=== PATIENT | female | born 1980 | race Caucasian/White ===

== ENCOUNTER 2017-05-22 08:46 | Emergency (ER) | payer OTHER ==
[~2017-05-22] VITALS: Ht 175.3 cm; Wt 138.0 kg
[~2017-05-22 08:46] MED LIST: ATOR10TA15 PO; EXENINJ SQ; LEXA20TA PO; LISI-519 PO; METF1000 PO; VITA1000 PO; ZITHTAB PO
[2017-05-22 08:57] VITALS: BP 135/72; PULSE 85; RESP 19; TEMP 98.3; O2SAT 97
--- NOTE | 2017-05-22 10:43 | PD ---
HPI Chief Complaint: Cold / Flu Symptoms Time Seen by Provider: 10:42 Travel History International Travel<30 days: No Contact w/Intl Traveler<30days: No Traveled to known affect area: No History of Present Illness HPI 36-year-old female presents emergency department with worsening upper respiratory symptoms including severe right ear pain, congestion, postnasal drip , sinus pressure, sore throat, cough, and wheezing. Patient was seen on the , and given azithromycin for diagnosis of bronchitis. X-ray at that time showed no pneumonia but platelike atelectasis on the left lower lung field. Patient denies significant fever, nausea, vomiting, or other symptoms. Patient has needed an inhaler in the past but normally does not have asthma. Right ear pain is 10 out of 10. She is allergic to penicillin. PFSH Past Medical History Cardiovascular Problems: Yes (HTN) High Cholesterol: Yes Diabetes: Yes Hypertension: Yes ?: Not LMP: 12/2016 Social History Alcohol Use: No Tobacco Use: No Substance Use: No Allergies-Medications (Allergen,Severity, Reaction): Coded Allergies: Penicillins (Verified Allergy, Severe, Anaphylaxis, 05/22/17) Reported Meds & Prescriptions Reported Meds & Active Scripts Active Zithromax Z-Cristiano (Azithromycin) 250 Mg Dspk 250 Mg PO DIRECTED 500 MG (2 tabs) day 1, then 1 tab days 2-5. Reported Lexapro (Escitalopram Oxalate) 20 Mg Tab 20 Mg PO HS Bydureon Inj (Exenatide) 2 Mg Vial 2 Mg SQ Q7D Vitamin D-1000 (Cholecalciferol) 1,000 Unit Tab 5,000 Units PO DAILY Metformin (Metformin HCl) 1,000 Mg Tab 1,000 Mg PO BIDPC Lisinopril 5 Mg Tab 5 Mg PO HS Atorvastatin (Atorvastatin Calcium) 10 Mg Tab 20 Mg PO HS Review of Systems Except as stated in HPI: all other systems reviewed are Neg General / Constitutional: No: Fever, Chills Eyes: No: Visual changes HENT: Positive: Headaches, Sore Throat, Rhinitis, Rhinorrhea, Congestion, Earache, No: Vertigo, Lightheadedness, Nosebleed, Neck Stiffness, Neck Pain, Masses, Gingival Bleeding, Dental Difficulties, Ear Discharge Cardiovascular: No: Chest Pain or Discomfort Respiratory: Positive: Cough, Shortness of Breath, Wheezing, No: Sneezing Gastrointestinal: No: Nausea, Vomiting, Diarrhea, Abdominal Pain Genitourinary: No: Dysuria Musculoskeletal: No: Pain Skin: No Rash Neurologic: No: Weakness Psychiatric: No: Depression Endocrine: No: Polydipsia Hematologic/Lymphatic: No: Easy Bruising Physical Exam Narrative GENERAL: Patient appears in moderate distress. SKIN: Warm and dry. Normal color. Normal turgor. HEAD: Atraumatic. Normocephalic. EYES: Pupils equal and round. No scleral icterus. No injection or drainage. ENT: No nasal bleeding or discharge. Mucous membranes pink and moist. Right TM shows the TM to be dull red and bulging. Left TM is unremarkable. Patient has mild to moderate sinus tenderness with palpation to both frontal and maxillary sinuses more on the right than the left. Posterior pharynx has cobblestoning and erythema without significant tonsillar swelling or exudate. Uvula is midline. Airways patent. NECK: Trachea midline. Supple and nontender CARDIOVASCULAR: Regular rate and rhythm. RESPIRATORY: No accessory muscle use. Mild diffuse wheezes throughout to auscultation. Breath sounds equal bilaterally. GASTROINTESTINAL: Abdomen soft, non-tender, nondistended. Hepatic and splenic margins not palpable. MUSCULOSKELETAL: Extremities without clubbing, cyanosis, or edema. No obvious deformities. NEUROLOGICAL: Awake and alert. No obvious cranial nerve deficits. Motor grossly within normal limits. Five out of 5 muscle strength in the arms and legs. Normal speech. PSYCHIATRIC: Appropriate mood and affect; insight and judgment normal. Data Data Last Documented VS Vital Signs Date Time Temp Pulse Resp B/P (MAP) Pulse Ox O2 Delivery O2 Flow Rate FiO2 05/22/17 08:57 98.3 85 19 135/72 (93) 97 Orders Orders Ketorolac Inj (Toradol Inj) (05/22/17 11:00) Prednisone (Deltasone) (05/22/17 11:00) Levofloxacin (Levaquin) (05/22/17 11:00) [facility] Medical Decision Making Medical Screen Exam Complete: Yes Emergency Medical Condition: Yes Medical Record Reviewed: Yes Differential Diagnosis Ongoing bronchitis. Wheezing. Right otitis media. Sinusitis. Postnasal drip Narrative Course Patient is given Toradol 60 mg IM, as well as 20 mg prednisone p.o. now. Patient is given a dose of Levaquin 750 mg p.o. now. Patient will be continued on Levaquin 500 mg daily for 10 days. Patient also given prednisone 20 mg daily for 5 days. Patient started on Flonase nasal spray 2 sprays each nostril daily. Patient is given is albuterol metered-dose inhaler 2 puffs every 4-6 hours as needed wheezing. Patient is given a work note for the next 2 days. Patient should follow-up if symptoms do not continue to improve with the above treatment. Diagnosis Primary Impression: Otitis media Qualified Codes: H66.001 - Acute suppurative otitis media without spontaneous rupture of ear drum, right ear Additional Impressions: Sinusitis Qualified Codes: J32.4 - Chronic pansinusitis Acute wheezy bronchitis Patient Instructions: General Instructions Additional Instructions: Patient will be continued on Levaquin 500 mg daily for 10 days. Patient also given prednisone 20 mg daily for 5 days. Patient started on Flonase nasal spray 2 sprays each nostril daily. Patient is given is albuterol metered-dose inhaler 2 puffs every 4-6 hours as needed wheezing. Patient is given a work note for the next 2 days. Patient should follow-up if symptoms do not continue to improve with the above treatment. Med/Other Pt SpecificInfo: Prescription(s) given Scripts Albuterol 18 GM Inh (Ventolin Hfa 18 GM Inh) 90 Mcg/Act Aer 2 PUFF INH Q4-6H Y for SHORTNESS OF BREATH, #1 INHALER 0 Refills Prov: Rodrick Cardona MD 05/22/17 Prednisone (Prednisone) 20 Mg Tab 20 MG PO DAILY for 5 Days, #5 TAB 0 Refills Prov: Rodrick Cardona MD 05/22/17 Fluticasone Nasal [place] (Flonase Nasal [place]) 50 Mcg/Act [place] 100 MCG EACH NARE BID for Allergies, #1 BOTTLE 0 Refills Prov: Rodrick Cardona MD 05/22/17 Levofloxacin (Levaquin) 500 Mg Tablet 500 MG PO DAILY for Infection for 10 Days, #10 TAB 0 Refills Prov: Rodrick Cardona MD 05/22/17 Disposition: 01 DISCHARGE HOME Condition: Stable Quoc Chavis May 22, 2017 10:43
[2017-05-22] MEDS ORDERED: LEVA500T33 PO (10:55)
[2017-05-22] MEDS ORDERED: FLUT1SPR5 EACH NARE (10:55)
[2017-05-22] MEDS ORDERED: PRED20 PO (10:55)
[2017-05-22] MEDS ORDERED: VENTAER INH (10:55)
[2017-05-22] MEDS ORDERED: predniSONE 20 MG TAB PO ONE (11:00)
[2017-05-22] MEDS ORDERED: LEVOFLOXACIN 750 MG TAB PO ONE (11:00)
[2017-05-22] MEDS ORDERED: KETOROLAC TROMETHAMINE 60 MG/2 ML (IM) VIAL IM ONE (11:00)
== END 2017-05-22 11:39 | disposition home or self-care (01) ==
LOC: NEPK 08:46
DX: H66.001 Acute suppurative otitis media without spontaneous rupture of ear drum, right ear (principal); J32.4 Chronic pansinusitis; J20.9 Acute bronchitis, unspecified; E11.9 Type 2 diabetes mellitus without complications; E78.00 Pure hypercholesterolemia, unspecified; I10 Essential (primary) hypertension; Z79.84 Long term (current) use of oral hypoglycemic drugs
CPT/HCPCS: 96372; 99283; J1885; J7512